=== PATIENT | female | born 1985 | race Two or more races ===

== ENCOUNTER 2024-07-10 06:03 | Day surgery (SDC) | payer OTHER ==
[2024-07-10] MEDS ORDERED: DIPHENHYDRAMINE HCL 50 MG/ML VIAL 1ML IV ONE (08:15)
[2024-07-10] MEDS ORDERED: MIDAZOLAM HCL/PF 5 MG/ML VIAL IV ONE (08:15)
[2024-07-10] MEDS ORDERED: MEPERIDINE HCL/PF 50 MG/ML VIAL IV ONE (08:15)
== END 2024-07-10 10:45 | disposition home or self-care (01) ==
LOC: AMB-ENDOS 06:03 → CIR.AMB 13:45
PROVIDERS: ATTEND Surgery
DX: K29.60 Other gastritis without bleeding (principal); E66.09 Other obesity due to excess calories; K44.9 Diaphragmatic hernia without obstruction or gangrene